=== PATIENT | female | born 1935 | race Asian ===

== ENCOUNTER 2022-07-15 16:28 | Emergency (ER) | payer OTHER ==
[~2022-07-15] VITALS: Ht 165.1 cm; Wt 74.8 kg
[2022-07-15 16:30] VITALS: BP_SYST 114
--- NOTE | 2022-07-15 16:30 | NUR ---
BROUGHT IN BY S [facility] AND TRIAGED. AWAITING ER BED AVAILABILITY
--- NOTE | 2022-07-15 16:59 | NUR ---
Patient to ER bed 02 to gown for evaluation. Side rails up. Report given to Bridgette BRINK
--- NOTE | 2022-07-15 17:34 | NUR ---
PT IS AOX1 PT IS CONCIOUS, TOLD BY REPORT PT HAS DEMENTIA AND BIT HER UPPER LIP AND IS HERE TO GET IT FIXED. PT VSS, NAD, SAFETY RAILS UP, PT PEED AND I HAD TO CHANGE HER WITH EMT ASSISTANCE PT WAS OFFERED BLANKET AND IS NOW RESTING COMFORTABLY, PT IS ALSO YORUBA(MANDARIN) SPEAKING ONLY. 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
--- NOTE | 2022-07-15 17:41 | NUR ---
STATIONED BY PT DUE TO DEMENTIA AND ANY PT NEEDS NEEDED.
[2022-07-15] MEDS ORDERED: LIDOCAINE 2%, 20 ML MDV INJ ONE (18:00)
[2022-07-15] MEDS ORDERED: ACET325T53 PO (18:02)
[2022-07-15] MEDS ORDERED: AMLO5TAB4 PO (18:02)
[2022-07-15] MEDS ORDERED: LORA-258 PO (18:02)
[2022-07-15] MEDS ORDERED: CLOB50SO2 TP (18:02)
[2022-07-15] MEDS ORDERED: VITD2000 PO (18:02)
[2022-07-15] MEDS ORDERED: MEMA5TAB PO (18:02)
[2022-07-15] MEDS ORDERED: DICL20GE TP (18:02)
[2022-07-15] MEDS ORDERED: DOCU-156 PO (18:02)
[2022-07-15] MEDS ORDERED: MELA3TAB41 PO (18:02)
[2022-07-15] MEDS ORDERED: MULT-976 PO (18:02)
[2022-07-15] MEDS ORDERED: OSCD500 PO (18:02)
[2022-07-15] MEDS ORDERED: MIRT-91 PO (18:02)
[2022-07-15] MEDS ORDERED: ASCO500T20 PO (18:02)
[2022-07-15] MEDS ORDERED: LORA10TA7 PO (18:02)
[2022-07-15] MEDS ORDERED: DIVA250T PO (18:02)
[2022-07-15] MEDS ORDERED: OLAN5TAB3 PO (18:02)
--- NOTE | 2022-07-15 18:02 | NUR ---
Medication reconciliation completed with information provided by [facility]. Any prior medication reconciliation on file was reviewed and corrected.
--- NOTE | 2022-07-15 18:20 | NUR ---
SPOKE WITH PTS DAUGHTER SAMANTHA AGUIRRE AT [phone] AND SHE WILL COME TO SIT WITH HER MOTHER.
--- NOTE | 2022-07-15 18:49 | NUR ---
ATTEMPTED TO REMOVE STERI STRIP FROM UPPER LIP AND UNABLE TO. PT WAS HITTING STAFF.
--- NOTE | 2022-07-15 19:02 | NUR ---
PT SLEEPING DAUGHTER AT BEDSIDE
--- NOTE | 2022-07-15 19:17 | NUR ---
REPORT GIVEN LORRIE BRINK
[2022-07-15] MEDS ORDERED: LIDOCAINE VISCOUS 2%, 15 ML UDC MM ONE (20:00)
[2022-07-15] MEDS ORDERED: BACITRACIN 1 GM OINT TP ONE ×2 (20:00→21:33)
[2022-07-15] MEDS ORDERED: BACI15OI13 TP (20:11)
[2022-07-15 21:40] VITALS: BP_SYST 120
--- NOTE | 2022-07-15 21:41 | NUR ---
Patient given written and verbal discharge instructions and verbalizes understanding. ER MD discussed with patient the results and treatment provided. Patient in stable condition. ID arm band removed. Rx of BACITRACIN given. Patient educated on pain management and to follow up with PMD. Pain Scale 0/10. Opportunity for questions provided and answered. Medication side effect fact sheet provided.
== END 2022-07-15 21:40 | disposition home or self-care (01) ==
LOC: SED 16:28
DX: S00.511A Abrasion of lip, initial encounter (principal); K08.89 Other specified disorders of teeth and supporting structures; B08.5 Enteroviral vesicular pharyngitis; Z79.899 Other long term (current) drug therapy; X58.XXXA Exposure to other specified factors, initial encounter; Y93.89 Activity, other specified; Y92.89 Other specified places as the place of occurrence of the external cause; Y99.8 Other external cause status
CPT/HCPCS: 99283; J2001

== ENCOUNTER 2023-01-17 12:44 | Inpatient (IN) | payer OTHER ==
[~2023-01-17] VITALS: Ht 157.5 cm; Wt 58.5 kg
[~2023-01-17 12:44] MED LIST: ACET325T53 PO; AMLO5TAB4 PO; ASCO500T20 PO; BACI15OI13 TP; CLOB50SO2 TP; DICL20GE TP; DIVA250T PO; DOCU-156 PO; LORA-258 PO; LORA10TA7 PO; MELA3TAB41 PO; MEMA5TAB PO; MIRT-91 PO; MULT-976 PO; OLAN5TAB3 PO; OSCD500 PO; VITD2000 PO
[2023-01-17 12:48] VITALS: BP_SYST 122; PULSE 51; RESP 18; TEMP 97.2; O2SAT 97
[2023-01-17 13:55] LABS: BASOPHILS % (AUTO) 0.6 % (0.0-2.0); EOSINOPHILS % (AUTO) 0.9 % (0.0-4.0); HEMATOCRIT 36.3 % (36-48); HEMOGLOBIN 11.7 g/dL (12.0-16.0); LYMPHOCYTES % (AUTO) 41.8 % (20.5-51.5); MEAN CORPUSCULAR HEMOGLOBIN 28 pg (27-31); MEAN CORPUSCULAR HGB CONC 32 % (32-36); MEAN CORPUSCULAR VOLUME 85 fL (79.0-98.0); MONOCYTES # (AUTO) 0.4 K/uL (0.0-1.0); MONOCYTES % (AUTO) 8.7 % (1.7-9.3); NEUTROPHILS # (AUTO) 2.3 K/uL (1.8-7.7); PLATELET COUNT (AUTO) 334 K/uL (130-430); RED BLOOD CELL COUNT(AUTO) 4.26 MIL/uL (4.2-6.2); RED CELL DISTRIBUTION WIDTH 15.1 % (9.0-15.0); WHITE BLOOD COUNT (AUTO) 4.8 K/uL (4.8-10.8)
[2023-01-17 14:06] LABS: BILIRUBIN,URINE NEGATIVE (NEGATIVE); BLOOD, URINE TRACE (NEGATIVE); CLARITY/URINE SLIGHTLY HAZY (CLEAR); COLOR,URINE YELLOW (YELLOW); GLUCOSE,URINE NEGATIVE (NEGATIVE); KETONES,URINE NEGATIVE (NEGATIVE); LEUKOCYTE ESTERASE ,URINE 2+ (NEGATIVE); NITRITE, URINE NEGATIVE (NEGATIVE); PROTEIN URINE NEGATIVE (NEGATIVE); UROBILINOGEN,URINE 0.2 (0.2-1.0)
[2023-01-17 14:07] LABS: ANION GAP 8 (5-15); CALCIUM 8.2 mg/dL (8.4-11.0); CARBON DIOXIDE 29 mmol/L (23-29); CHLORIDE 101 mmol/L (98-107); GLUCOSE 98 mg/dL (74-106); POTASSIUM 3.9 mmol/L (3.5-5.1); PROTHROMBIN TIME 9.9 SECS (9.5-12.5); SODIUM SERUM 138 mmol/L (136-145); UREA NITROGEN, BLOOD 22 mg/dL (8-21)
[2023-01-17 14:13] LABS: BACTERIA,URINE RARE /HPF (None Seen)
[2023-01-17 14:21] LABS: ACETAMINOPHEN < 1 ug/mL (1-30); ALANINE AMINOTRANSFERASE 8 U/L (12-78); ALBUMIN 3.6 g/dL (3.4-4.8); ALCOHOL, BLOOD < 3 mg/dL (<10); ASPARTATE AMINOTRANSFERASE 19 U/L (10-37); CREATINE KINASE, TOTAL 61 U/L (26-192); SALICYLATE < 1 mg/dL (3-30); TOTAL BILIRUBIN 0.7 mg/dL (0.0-1.0); TOTAL PROTEIN, SERUM 7.6 g/dL (6.4-8.3)
[2023-01-17 14:24] LABS: BARBITURATE, URINE NEGATIVE (NEG <=200); BENZODIAZEPINE, URINE NEGATIVE (NEG <=150); CANNABINOID, URINE NEGATIVE (NEG <=50); COCAINE, URINE NEGATIVE (NEG <=150); METHAMPHETAMINES SCREEN,URINE NEGATIVE (NEG <=500); OPIATE, URINE NEGATIVE (NEG <=100); PHENCYCLIDINE SCREEN,URINE NEGATIVE (NEG <=25); UR TRICYCLIC ANTIDEPRESSANTS NEGATIVE (NEG <=300); URINE AMPHETAMINE NEGATIVE (NEG <=500); URINE METHADONE NEGATIVE (NEG <=200); URINE OXYCODONE SCREEN NEGATIVE (NEG <=100); URINE PROPOXYPHENE SCREEN NEGATIVE (NEG <=300)
[2023-01-17 14:27] LABS: ACETONE, SERUM NEGATIVE (NEGATIVE)
[2023-01-17] MEDS ORDERED: cefTRIAXone 1 GM IVPB PREMIX 50 ML IV ONE (14:30)
[2023-01-17] MEDS: D5/0.45 NS 1,000 ML IV SCH (15:38)
[2023-01-17] MEDS ORDERED: ACETAMINOPHEN 325 MG TABLET PO PRN (15:45)
[2023-01-17] MEDS ORDERED: DICLOFENAC SODIUM TP SCH (17:00)
[2023-01-17 20:00] VITALS: BP_SYST 137; PULSE 61; RESP 16; TEMP 97.5; O2SAT 100
[2023-01-17] MEDS: DOCUSATE SODIUM 100 MG CAPSULE PO SCH (21:00)
[2023-01-17] MEDS ORDERED: BACITRACIN ZINC 15 GM TOPICAL OINTMENT TP SCH (21:00)
[2023-01-17] MEDS ORDERED: CLOBETASOL PROPIONATE TP SCH (21:00)
[2023-01-17] MEDS: MIRTAZAPINE 15 MG TABLET PO SCH (22:33)
[2023-01-17] MEDS: OLANZapine 5 MG TABLET PO SCH (22:33)
[2023-01-17] MEDS: MEMANTINE HCL 5 MG TABLET PO SCH (22:33)
[2023-01-17] MEDS: DIVALPROEX SODIUM 125 MG CAP.(DEPAKOTE SPRINKLE) PO SCH (22:33)
[2023-01-17] MEDS: CALCIUM CARBONATE/VITAMIN D3 1 TAB TABLET PO SCH (22:33)
[2023-01-17] MEDS: MELATONIN 3 MG TABLET PO SCH (22:34)
[2023-01-17] MEDS: CEFEPIME 1 GM in D5W 50 ML IV SCH (22:34)
[2023-01-17] MEDS: ENOXAPARIN SODIUM 40 MG/0.4 ML SYRINGE SUBCUT SCH (22:34)
[2023-01-18] VITALS (8 sets, daily range): BP systolic 121–161; PULSE 47–83; RESP 14–16; TEMP 96.7–98.8; O2SAT 97–100
[2023-01-18] MEDS: D5/0.45 NS 1,000 ML IV SCH ×2 (04:24→17:25)
[2023-01-18] MEDS: LORazepam 1 MG TABLET PO PRN ×3 (06:31→21:53)
[2023-01-18] MEDS: CEFEPIME 1 GM in D5W 50 ML IV SCH ×2 (10:40→21:04)
[2023-01-18] MEDS: MULTIVITAMINS TAB 1 TABLET PO SCH (13:26)
[2023-01-18] MEDS: ASCORBIC ACID 500 MG TABLET PO SCH (13:26)
[2023-01-18] MEDS: OLANZapine 5 MG TABLET PO SCH ×2 (13:27→21:52)
[2023-01-18] MEDS: DOCUSATE SODIUM 100 MG CAPSULE PO SCH ×2 (13:27→21:52)
[2023-01-18] MEDS: DIVALPROEX SODIUM 125 MG CAP.(DEPAKOTE SPRINKLE) PO SCH ×2 (13:27→21:52)
[2023-01-18] MEDS: MEMANTINE HCL 5 MG TABLET PO SCH ×2 (13:27→21:52)
[2023-01-18] MEDS: amLODIPine BESYLATE 5 MG TABLET PO SCH (13:27)
[2023-01-18] MEDS: CALCIUM CARBONATE/VITAMIN D3 1 TAB TABLET PO SCH ×2 (13:28→21:53)
[2023-01-18] MEDS: CHOLECALCIFEROL (VITAMIN D3) 2,000 UNIT TABLET PO SCH (13:28)
[2023-01-18] MEDS: LORATADINE 10 MG TABLET PO SCH (13:28)
[2023-01-18] MEDS: MIRTAZAPINE 15 MG TABLET PO SCH (21:52)
[2023-01-18] MEDS: ENOXAPARIN SODIUM 40 MG/0.4 ML SYRINGE SUBCUT SCH (21:52)
[2023-01-18] MEDS: MELATONIN 3 MG TABLET PO SCH (21:57)
[2023-01-19 01:08] VITALS: BP_SYST 152; PULSE 69; RESP 16; TEMP 97.6; O2SAT 99
[2023-01-19] MEDS: LORazepam 1 MG TABLET PO PRN ×2 (04:54→13:32)
[2023-01-19 05:30] LABS: BASOPHILS % (AUTO) 0.7 % (0.0-2.0); EOSINOPHILS % (AUTO) 0.7 % (0.0-4.0); HEMATOCRIT 32.1 % (36-48); HEMOGLOBIN 10.6 g/dL (12.0-16.0); LYMPHOCYTES # (AUTO) 1.6 K/uL (1.0-5.5); LYMPHOCYTES % (AUTO) 28.5 % (20.5-51.5); MEAN CORPUSCULAR HEMOGLOBIN 28 pg (27-31); MEAN CORPUSCULAR HGB CONC 33 % (32-36); MEAN CORPUSCULAR VOLUME 84 fL (79.0-98.0); MONOCYTES # (AUTO) 0.5 K/uL (0.0-1.0); MONOCYTES % (AUTO) 9.9 % (1.7-9.3); NEUTROPHILS # (AUTO) 3.3 K/uL (1.8-7.7); NEUTROPHILS % (AUTO) 60.2 % (40.0-70.0); PLATELET COUNT (AUTO) 253 K/uL (130-430); RED BLOOD CELL COUNT(AUTO) 3.82 MIL/uL (4.2-6.2); RED CELL DISTRIBUTION WIDTH 14.7 % (9.0-15.0); WHITE BLOOD COUNT (AUTO) 5.4 K/uL (4.8-10.8)
[2023-01-19 05:39] LABS: ANION GAP 8 (5-15); CALCIUM 8.3 mg/dL (8.4-11.0); CARBON DIOXIDE 27 mmol/L (23-29); CHLORIDE 104 mmol/L (98-107); CREATININE 0.76 mg/dL (0.55-1.30); GLUCOSE 101 mg/dL (74-106); POTASSIUM 3.9 mmol/L (3.5-5.1); SODIUM SERUM 139 mmol/L (136-145); UREA NITROGEN, BLOOD 19 mg/dL (8-21)
[2023-01-19] MEDS: D5/0.45 NS 1,000 ML IV SCH ×2 (06:45→21:14)
[2023-01-19 08:00] VITALS: BP_SYST 157; PULSE 71; RESP 18; TEMP 97.2; O2SAT 99
[2023-01-19] MEDS: MULTIVITAMINS TAB 1 TABLET PO SCH (08:41)
[2023-01-19] MEDS: ASCORBIC ACID 500 MG TABLET PO SCH (08:41)
[2023-01-19] MEDS: DOCUSATE SODIUM 100 MG CAPSULE PO SCH ×2 (08:41→21:11)
[2023-01-19] MEDS: DIVALPROEX SODIUM 125 MG CAP.(DEPAKOTE SPRINKLE) PO SCH (08:41)
[2023-01-19] MEDS: LORATADINE 10 MG TABLET PO SCH (08:41)
[2023-01-19] MEDS: amLODIPine BESYLATE 5 MG TABLET PO SCH (08:42)
[2023-01-19] MEDS: MEMANTINE HCL 5 MG TABLET PO SCH ×2 (08:42→21:11)
[2023-01-19] MEDS: OLANZapine 5 MG TABLET PO SCH ×2 (08:42→21:11)
[2023-01-19] MEDS: CALCIUM CARBONATE/VITAMIN D3 1 TAB TABLET PO SCH ×2 (08:42→21:12)
[2023-01-19] MEDS: CHOLECALCIFEROL (VITAMIN D3) 2,000 UNIT TABLET PO SCH (08:42)
[2023-01-19] MEDS ORDERED: ENOXAPARIN SODIUM 40 MG/0.4 ML SYRINGE SUBCUT SCH (09:00)
[2023-01-19] MEDS: CEFEPIME 1 GM in D5W 50 ML IV SCH ×2 (10:02→21:10)
[2023-01-19 11:21] VITALS: O2SAT 99
[2023-01-19 12:45] VITALS: BP_SYST 154; PULSE 76; RESP 16; TEMP 97; O2SAT 99
[2023-01-19 16:50] VITALS: BP_SYST 159; PULSE 84; RESP 16; TEMP 97.6; O2SAT 95
[2023-01-19] MEDS ORDERED: HALOPERIDOL LACTATE 5 MG/ML VIAL IM ONE (18:00)
[2023-01-19 20:05] VITALS: BP_SYST 108; PULSE 61; RESP 18; TEMP 97.8; O2SAT 98
[2023-01-19] MEDS: DIVALPROEX SODIUM 125 MG CAP.(DEPAKOTE SPRINKLE) GT SCH (21:11)
[2023-01-19] MEDS: MIRTAZAPINE 15 MG TABLET PO SCH (21:11)
[2023-01-19] MEDS: MELATONIN 3 MG TABLET PO SCH (21:12)
[2023-01-19] MEDS: ENOXAPARIN SODIUM 40 MG/0.4 ML SYRINGE SUBCUT SCH (21:13)
[2023-01-20] MEDS: LORazepam 1 MG TABLET PO PRN ×2 (00:25→16:56)
[2023-01-20 00:36] VITALS: BP_SYST 107; PULSE 71; RESP 18; TEMP 97.2
[2023-01-20 08:00] VITALS: BP_SYST 152; PULSE 68; RESP 16; TEMP 97.1; O2SAT 99
[2023-01-20] MEDS: MEMANTINE HCL 5 MG TABLET PO SCH (09:57)
[2023-01-20] MEDS: OLANZapine 5 MG TABLET PO SCH (09:57)
[2023-01-20] MEDS: MULTIVITAMINS TAB 1 TABLET PO SCH (09:57)
[2023-01-20] MEDS: CALCIUM CARBONATE/VITAMIN D3 1 TAB TABLET PO SCH (09:57)
[2023-01-20] MEDS: LORATADINE 10 MG TABLET PO SCH (09:58)
[2023-01-20] MEDS: CEFEPIME 1 GM in D5W 50 ML IV SCH (10:00)
[2023-01-20] MEDS: amLODIPine BESYLATE 5 MG TABLET PO SCH (10:03)
[2023-01-20] MEDS: CHOLECALCIFEROL (VITAMIN D3) 2,000 UNIT TABLET PO SCH (10:05)
[2023-01-20] MEDS: DIVALPROEX SODIUM 125 MG CAP.(DEPAKOTE SPRINKLE) GT SCH (10:09)
[2023-01-20] MEDS: ASCORBIC ACID 500 MG TABLET PO SCH (10:28)
[2023-01-20] MEDS: DOCUSATE SODIUM 100 MG CAPSULE PO SCH (10:28)
[2023-01-20 14:00] VITALS: BP_SYST 143; PULSE 87; RESP 16; TEMP 97.6; O2SAT 97
[2023-01-20 17:20] VITALS: BP_SYST 140; PULSE 72; RESP 17; TEMP 97.1; O2SAT 97
[2023-01-20 18:05] VITALS: BP_SYST 140; PULSE 72; RESP 15; TEMP 97.1; O2SAT 99
== END 2023-01-20 19:00 | DRG 640 ==
LOC: SED 12:44 → SMU 14:26
PROVIDERS: ADMIT Family Medicine; ATTEND Family Medicine
DX: E86.0 Dehydration (principal); G93.41 Metabolic encephalopathy; N39.0 Urinary tract infection, site not specified; I11.0 Hypertensive heart disease with heart failure; I50.9 Heart failure, unspecified; M19.90 Unspecified osteoarthritis, unspecified site; F32.A Depression, unspecified; R13.10 Dysphagia, unspecified; F25.8 Other schizoaffective disorders
CPT/HCPCS: 36415; 70450-TC; 71045; 72125-TC; 76376; 80048; 80053; 80307; 81000; 82009; 82140; 82550; 83605; 83735; 83880; 84484; 85025; 85610-TC; 85730-TC; 87081; 87086; 93005; 96365; 99285; G0480; G0481; G0482; J0692; J0696; J1650; J7060